=== PATIENT | male | born 1995 | race Two or more races ===

== ENCOUNTER 2021-08-18 20:55 | Emergency (ER) | payer OTHER ==
[2021-08-18 21:47] LABS: BASOPHIL 0.7 % (0-2); EOSINOPHIL 2.5 % (0-5); HCT 39.9 % (42.0-52.0); HGB 13.3 g/dl (13.2-18.0); LYMPHOCYTE 22.7 % (15-48); MCH 30.9 pg (25.0-31.0); MCHC 33.3 g/dL (32.0-36.0); MCV 92.8 fL (78.0-100.0); MPV 10.3 fL (6.0-9.5); NEUTROPHIL 67.8 % (41-80); NRBC 0; PLT 296 K/uL (150-400); RDW 12.2 % (11.5-14.0); WBC 10.7 K/uL (4.0-10.5)
[2021-08-18 21:56] LABS: ALBUMIN 4.1 g/dL (3.4-5.0); BILIRUBIN - TOTAL 0.2 mg/dL (0.2-1.0); BUN/CREAT RATIO (CALC) 19.7 RATIO; CREATININE 0.71 mg/dL (0.67-1.17); GLOBULIN (CALCULATION) 3.3 g/dL; POTASSIUM 3.6 mmol/L (3.5-5.1); TOTAL PROTEIN 7.4 g/dL (6.4-8.2)
[2021-08-19 03:05] LABS: BILIRUBIN NEGATIVE (NEGATIVE); BLOOD NEGATIVE Ery/uL (NEGATIVE); CLARITY CLEAR (CLEAR); COLOR YELLOW (YELLOW); GLUCOSE (U) NORMAL (NORMAL); LEUKOCYTES NEGATIVE Leu/uL (NEGATIVE); NITRITE NEGATIVE (NEGATIVE); PROTEIN TRACE (LOW) mg/dL (NEGATIVE); SPECIFIC GRAVITY 1.025 (1.001-1.030)
[2021-08-19 03:12] LABS: AMPHETAMINES POSITIVE (NEGATIVE); BARBITURATES NEGATIVE (NEGATIVE); ECSTASY (MDMA) POSITIVE (NEGATIVE); MARIJUANA (THC) POSITIVE (NEGATIVE); METHADONE NEGATIVE (NEGATIVE); OPIATES NEGATIVE (NEGATIVE); OXYCODONE NEGATIVE (NEGATIVE)
== END 2021-08-19 12:10 ==
LOC: FER 20:55
PROVIDERS: Internal Medicine
DX: F23 Brief psychotic disorder (principal); F10.129 Alcohol abuse with intoxication, unspecified; S51.811A Laceration without foreign body of right forearm, initial encounter; Z20.822 Contact with and (suspected) exposure to COVID-19; Z28.310 Unvaccinated for COVID-19; X58.XXXA Exposure to other specified factors, initial encounter; Y90.6 Blood alcohol level of 120-199 mg/100 ml
CPT/HCPCS: 36415; 71045; 80053; 80305; 81003; 85025; 96372; G0480; U0002